=== PATIENT | female | born 1945 | race Caucasian/White ===

== ENCOUNTER → 2018-02-08 19:10 | Outpatient (CLI) | payer MEDICARE | END | disposition home or self-care (01) | LOC: D.MAMMO 11:30 | DX: Z12.31 Encounter for screening mammogram for malignant neoplasm of breast (principal) ==

== ENCOUNTER → 2018-12-13 10:55 | Outpatient (CLI) | payer MEDICARE | END | disposition home or self-care (01) | LOC: D.MRI 10:55 | DX: M54.2 Cervicalgia (principal) ==

== ENCOUNTER → 2019-02-15 19:24 | Outpatient (CLI) | payer MEDICARE | END | disposition home or self-care (01) | LOC: D.MAMMO 19:24 | DX: Z12.31 Encounter for screening mammogram for malignant neoplasm of breast (principal) ==

== ENCOUNTER 2019-03-17 19:00 | Outpatient (CLI) | payer MEDICARE | END 2019-03-17 23:59 | disposition home or self-care (01) | LOC: D.MAMMO 19:00 | PROVIDERS: ATTEND Nurse Practitioner | DX: R92.8 Other abnormal and inconclusive findings on diagnostic imaging of breast (principal) ==

== ENCOUNTER 2019-09-12 08:00 | Outpatient (CLI) | payer MEDICARE | END 2019-09-12 23:59 | disposition home or self-care (01) | LOC: D.MAMMO 08:00 | PROVIDERS: ATTEND Surgery | DX: R92.2 Inconclusive mammogram (principal) ==

== ENCOUNTER → 2021-01-10 08:45 | Day surgery (SDC) | payer MEDICARE ==
[~2021-01-10] VITALS: Ht 162.6 cm; Wt 68.9 kg
[~2021-01-10 08:45] MED LIST: BAYER CHEWABLE81 MG PO; BUPROPION XL150 MG PO; CITRACAL + D E1 EACH PO; CLARITIN 10 MG10 MG PO; JANUMET XR 50-1 EACH PO; LANTUS INS100 UNITS/ SC; LOSARTAN-HCTZ1 EAC1 PO; MEDROL DOSE PACK4 MG PO; METOPROLOL TART50 MG PO; NORVASC5 MG PO; OMEPRAZOLE20 M1 PO; OXYBUTYNIN CHLOR5 MG PO; PERCOCET 10-321 EAC1 PO; SINGULAIR10 MG PO; TIROSINT50 MCG PO; ZOCOR80 MG PO
[2021-01-10 09:13] LABS: BASOPHILS 0 % (0-2); EOSINOPHILS 0.1 % (0-7); HEMATOCRIT 42.8 % (36.0-48.0); HEMOGLOBIN 13.7 g/dL (12-16); IMMATURE GRANULOCYTES 0.7 % (0-5); MCH 28.1 pg (26.0-34.0); MCV 87.9 fL (80.0-100.0); MEAN PLATELET VOLUME 9.9 fL (7.4-10.4); MONOCYTES 6.2 % (2-11); NEUTROPHIL ABS# 9.24 10x3/uL (1.56-6.13); PLATELET COUNT 295 10x3/uL (130-400); RBC 4.87 10x6/uL (4.00-5.40); WBC 11.6 10x3/uL (4.8-10.8)
[2021-01-10 09:25] LABS: ANION GAP 9.1 mmol/L (8-16); CALCIUM 8.3 mg/dL (8.5-10.1); CARBON DIOXIDE 28.9 mmol/L (21.0-32.0); CREATININE - SERUM 1.1 mg/dL (0.6-1.3)
[2021-01-10 10:43] VITALS: BP 154/77; Ht 162.6 cm; Wt 68.9 kg
--- NOTE | 2021-01-10 18:00 | NUR ---
IV D/C'D WITH CANNULA IMTACT, PRESSURE HELD, AND DRSG PLACED. DISCHARGE INSTRUCTIONS GIVEN AND PT AND DAUGHTER VERBALIZED AN UNDERSTANDING. DRSG CDI. DISCHARGED IN STABLE CONDITION AND WITHOUT COMPLAINT
--- NOTE | 2021-01-16 13:05 | OP ---
PATIENT NAME: KHARI RANDOLPH MEDICAL RECORD: [id number] :47 LOCATION:D.OPS ADMISSION DATE: SURGEON: AUSTIN DUMONT MD DATE OF OPERATION: 01/10/2021 DATE OF SERVICE: 01/10/2021 PREOPERATIVE DIAGNOSES: Lumbar spinal stenosis with foraminal stenosis at L4-L5 on the right with a L4-L5 disk herniation of right. POSTOPERATIVE DIAGNOSES: Lumbar spinal stenosis with foraminal stenosis at L4-L5 on the right with a L4-L5 disk herniation on right. PROCEDURE: Lumbar laminotomy, medial facetectomy and foraminotomy at L4-L5 on the right with diskectomy L4-L5 right METRx retractor. SURGEON: Austin Dumont MD DESCRIPTION OF PROCEDURE: After induction of general endotracheal anesthesia, the patient was rolled prone on the Benjamin frame. The lumbar spine was prepped and draped in the usual sterile fashion. Fluoroscopic x-ray and spinal needle localized the L4-L5 interspace on the right side. A stab incision was created with a #11 blade after infiltration of 1:100,000 epinephrine with 1% lidocaine. A series of dilators were used to advance a METRx retractor to the L4-L5 interspace on the right side. Level was confirmed with fluoroscopic x-ray. A microscope and Midas Tyrel drill were used to perform laminotomy, medial facetectomy and foraminotomy at L4-L5 on the right. Hypertrophied ligamentum flavum was removed with Cloward rongeurs. Following this, the L5 nerve root was identified. Within the axilla of the nerve root, there was a free fragment disk herniation, this was removed with pituitary rongeur and curettes. Additional disk material was removed from the disk space with pituitary rongeurs. Following this, the L4 and L5 nerve roots were decompressed as well on the right side. Meticulous hemostasis was maintained throughout the wound. The wound was irrigated with copious amounts of Ancef irrigant solution. The retractor was removed. The fascia was closed with 2-0 Vicryl suture. Subdermal layer was closed with 3-0 Vicryl suture. The skin was closed with miranda. A sterile dressing was applied to the wound. The patient was awakened in good condition and taken to recovery. All counts were reported as correct. ESTIMATED BLOOD LOSS: Minimal. TRANSINT:[id number] Voice Confirmation ID: [id number] DOCUMENT ID: [id number] AUSTIN DUMONT MD at 1305 CC: [id number] DICTATION DATE: 01/16/211107 [employer]: 01/16/21 113[address] [facility] 01/10/21 [place] [id number] [place] [id number]
== END | disposition home or self-care (01) ==
LOC: D.OPS 01-09 10:30
PROVIDERS: Anesthesiology; ATTEND Neurological Surgery
DX: M48.061 Spinal stenosis, lumbar region without neurogenic claudication (principal); M51.26 Other intervertebral disc displacement, lumbar region; M54.16 Radiculopathy, lumbar region; K21.9 Gastro-esophageal reflux disease without esophagitis; I10 Essential (primary) hypertension; E11.9 Type 2 diabetes mellitus without complications; Z79.84 Long term (current) use of oral hypoglycemic drugs